=== PATIENT | female | born 1990 | race Caucasian/White ===

== ENCOUNTER → 2018-11-11 | Outpatient (CLI) | payer OTHER ==
[~2018-11-11] MED LIST: LIS50 PO
--- NOTE | 2018-11-11 15:53 | RADIOLOGY IMAGING REPORT ---
[place] [facility] [place]: Angela Squires : 1990 MR: [id number] V: [id number] EXAM DATE: ORDERING PHYSICIAN: JUNI EVERETT TECHNOLOGIST: [place] [facility] [place] Squ[place] : 1990 Visit/Account:[id number] Date of Sevice: 11/11/2018 GALLBLADDER HISTORY: Right upper quadrant pain times several years increasing in severity COMPARISON: CT abdomen and pelvis fibroid 2015 FINDINGS: Gallbladder: Unremarkable; no stones or sludge. Liver: Negative. Common duct: Normal, 3.4 mm diameter. Pancreas: Partially obscured by bowel, visualized aspects unremarkable. Right kidney: Right kidney appears unremarkable measuring 10.8 cm in length Upper abdominal aorta and IVC: Patent. Ascites: None visualized. IMPRESSION: Unremarkable right upper quadrant ultrasound Report Dictated By: Candice Yeung MD at 11/11/2018 3:47 PM Report E-Signed By: Candice Yeung MD at 11/11/2018 3:48 PM WSN:[id number]
== END ==
LOC: US 01:17
PROVIDERS: ATTEND Nurse Practitioner Family
DX: R10.11 Right upper quadrant pain (principal); R11.2 Nausea with vomiting, unspecified
CPT/HCPCS: 76705